=== PATIENT | female | born 1950 | race Caucasian/White ===

== ENCOUNTER → 2018-11-22 | Outpatient (CLI) | payer MEDICARE | END | disposition home or self-care (01) | LOC: PCVCCLINIC 11:15 | PROVIDERS: ATTEND Internal Medicine | DX: R06.09 Other forms of dyspnea (principal); I26.99 Other pulmonary embolism without acute cor pulmonale; E78.5 Hyperlipidemia, unspecified; E03.9 Hypothyroidism, unspecified; Z79.899 Other long term (current) drug therapy | CPT/HCPCS: 36415; 80061; 93005; G0463 ==

== ENCOUNTER → 2018-11-26 | Outpatient (CLI) | payer MEDICARE ==
--- NOTE | 2018-11-26 20:08 | PCVCIMAG ---
APPROVED REPORT Study performed: 11/26/2018 13:16:10 EXAM: Comprehensive 2D, Doppler, and color-flow Echocardiogram Patient Location: Echo lab Status: routine BSA: 2.20 HR: 73 bpmBP: 130/80 mmHg Rhythm: NSR Other Information Study Quality: Adequate Risk Factors: Cardiac Risk Factors: Hyperlipidemia Indications Pulmonary Embolism Dyspnea 2D Dimensions IVSd: 11.57 (7-11mm) LVDd: 38.77 mm PWd: 10.49 (7-11mm) LVDs: 25.55 (25-40mm) Left Atrium: 34.80 (27-40mm) Aortic Root: 32.88 mm LV Single Plane 4CH: 50.98 % LV Single Plane 2CH: 64.21 % Biplane EF: 56.8 % Volumes Left Atrial Volume (Systole) Single Plane 4CH: 45.01 mLSingle Plane 2CH: 43.36 mL LA ESV Index: 22.00 mL/m2 Aortic Valve AoV Peak Weston.: 1.48 m/s AO Peak Gr.: 8.76 mmHgLVOT Max P.72 mmHg LVOT Max V: 1.09 m/s Mitral Valve E/A Ratio: 0.8 MV Decel. Time: 245.95 ms MV E Max Weston.: 0.42 m/s MV A Weston.: 0.56 m/s IVRT: 110.73 ms Pulmonary Valve PV Peak Weston.: 0.92 m/sPV Peak Gr.: 3.37 mmHg Pulmonary Vein P Vein S: 0.34 m/sP Vein A: 0.33 m/s P Vein D: 0.49 m/sP Vein A Dur.: 117.6 msec P Vein S/D Ratio: 0.69 Tricuspid Valve TR Peak Weston.: 2.55 m/s TR Peak Gr.: 26.05 mmHg TV Vmax: 0.41 m/s Left Ventricle The left ventricle is normal size. There is normal LV segmental wall motion. Borderline concentric left ventricular hypertrophy. Left ventricular systolic function is normal. The left ventricular ejection fraction is within the normal range. LVEF is 55-60%. Grade I - abnormal relaxation pattern. Right Ventricle The right ventricle is normal size. The right ventricular systolic function is normal. Atria Left atrium is at the upper limits of normal. Right atrium is mildly dilated. Aortic Valve The aortic valve is normal in structure. Trace aortic regurgitation. There is no aortic valvular stenosis. Mitral Valve The mitral valve is normal in structure. Trace mitral regurgitation. No evidence of mitral valve stenosis. Tricuspid Valve The tricuspid valve is normal in structure. Mild tricuspid regurgitation with PAP of 33 mmHg. Pulmonic Valve The pulmonary valve is normal in structure. Trace pulmonic regurgitation. Great Vessels The aortic root is normal in size. IVC is normal in size and collapses >50% with inspiration. Pericardium There is no pericardial effusion. There is no pleural effusion. <Conclusion> The left ventricle is normal size. LVEF is 55-60%. Left atrium is at the upper limits of normal. Right atrium is mildly dilated. The aortic valve is normal in structure. Trace aortic regurgitation. The mitral valve is normal in structure. Trace mitral regurgitation. The tricuspid valve is normal in structure. Mild tricuspid regurgitation with PAP of 33 mmHg. The pulmonary valve is normal in structure. Trace pulmonic regurgitation. There is no pericardial effusion. There is no pericardial effusion.
== END | disposition home or self-care (01) ==
LOC: PCVCIMAG 14:10
PROVIDERS: ATTEND Internal Medicine
DX: I07.1 Rheumatic tricuspid insufficiency (principal); E03.9 Hypothyroidism, unspecified; I26.99 Other pulmonary embolism without acute cor pulmonale; G47.33 Obstructive sleep apnea (adult) (pediatric); E78.5 Hyperlipidemia, unspecified
CPT/HCPCS: 93306